=== PATIENT | female | born 1950 | race Caucasian/White ===

== ENCOUNTER → 2019-12-13 | Outpatient (CLI) | payer MEDICARE, BC | END | disposition home or self-care (01) | LOC: LAB 15:50 → LAB SHORT 15:50 | DX: N39.0 Urinary tract infection, site not specified (principal) | CPT/HCPCS: 87086 ==

== ENCOUNTER 2021-01-08 15:46 | Emergency (ER) | payer MEDICARE, BC ==
[~2021-01-08] VITALS: Ht 154.9 cm; Wt 89.8 kg
[2021-01-08 16:29] LABS: BASOPHILS ABSOLUTE AUTO 0.01 K/mm3 (0.00-0.23); BASOPHILS PERCENT AUTO 0 % (0-2); EOSINOPHILS ABSOLUTE AUTO 1.69 K/mm3 (0.00-0.68); EOSINOPHILS PERCENT AUTO 14 % (0-6); Hematocrit 41.5 % (33.0-51.0); IMMATURE GRAN ABSOLUTE AUTO 0.03 K/mm3 (0.00-0.10); IMMATURE GRAN PERCENT AUTO 0 % (0-1); LYMPHOCYTES ABSOLUTE AUTO 1.72 K/mm3 (0.84-5.20); LYMPHOCYTES PERCENT AUTO 14 % (21-46); MONOCYTES ABSOLUTE AUTO 0.74 K/mm3 (0.16-1.47); MONOCYTES PERCENT AUTO 6 % (4-13); Mean Corpuscular HGB 26.1 pg (26.0-34.0); Mean Corpuscular HGB Conc 31.3 g/dL (31.5-36.5); Mean Corpuscular Volume 83 fL (80-100); Mean Platelet Volume 10.1 fL (9.1-12.4); NEUTROPHILS ABSOLUTE AUTO 8.27 K/mm3 (1.96-9.15); NEUTROPHILS PERCENT AUTO 66 % (41-73); Platelet Count 290 K/mm3 (150-400); RDW Coefficient Variation 14.7 % (11.7-14.2); Red Blood Cell Count 4.99 M/mm3 (3.80-5.20); White Blood Cell Count 12.46 K/mm3 (4.00-11.30)
[2021-01-08 16:50] LABS: Albumin, Blood 3.3 g/dL (3.4-5.0); Albumin/Globulin Ratio 0.8 (0.8-1.8); Bilirubin, Total 0.4 mg/dL (0.1-1.0); Bun/Creatinine Ratio 17.8 (12.0-20.0); Calcium, Blood 9.4 mg/dL (8.5-10.1); Creatinine, Blood 1.35 mg/dL (0.40-1.00); Globulin, Blood 4.1 g/dL (2.2-4.0); Potassium, Blood 4.2 mmol/L (3.5-5.5); Total Protein, Blood 7.4 g/dL (6.4-8.2)
[2021-01-08] MEDS ORDERED: OXYC5 PO (17:04)
[2021-01-08] MEDS ORDERED: GLIP2.5ER (17:05)
[2021-01-08] MEDS ORDERED: VENLAFAXINE HC225 MG PO (17:05)
[2021-01-08] MEDS ORDERED: PREGABALIN50 MG PO (17:05)
[2021-01-08] MEDS ORDERED: FUROSEMIDE20 MG PO (17:05)
[2021-01-08] MEDS ORDERED: ROSUVASTATIN CA10 MG PO (17:06)
[2021-01-08] MEDS ORDERED: ZOLOFT100 M5 PO (17:06)
[2021-01-08] MEDS ORDERED: Prinivil10 MG (17:07)
[2021-01-08] MEDS ORDERED: SYNTHROID100 MC6 PO (17:07)
[2021-01-08] MEDS ORDERED: ATENOLOL25 MG PO (17:08)
[2021-01-08] MEDS ORDERED: ALLOPURINOL100 M1 PO (17:08)
[2021-01-08] MEDS ORDERED: TRULICITY0.75 MG/01 SC (17:08)
[2021-01-08] MEDS ORDERED: HUMULIN N100 UNIT/6 SC (17:10)
[2021-01-08 18:17] LABS: Source, Urine Clean Catch
[2021-01-08 18:22] LABS: Appearance, Urine Clear (Clear); Bilirubin, Urine Neg (Neg); Blood, Urine Neg (Neg); Color, Urine Yellow (P-Yellow); Glucose Qualitative, Urine Neg (Neg); Ketones, Urine Neg (Neg); Leukocyte Esterase, Urine 1+ (Neg); Nitrite, Urine Neg (Neg); Protein, Urine Neg (Neg); Specific Gravity, Urine 1.015 (1.003-1.022); Urobilinogen, Urine NORM (Normal)
[2021-01-08 18:29] LABS: Red Blood Cells, Urine Not Seen /hpf (0-2)
[2021-01-08 18:30] LABS: Bacteria Many /hpf; Squamous Epithelial Cells Many /hpf (Few)
[2021-01-08] MEDS ORDERED: Macrobid 100 M100 MG PO (18:46)
== END 2021-01-08 19:01 | disposition home or self-care (01) ==
LOC: ER 15:46
PROVIDERS: Physician Assistant
DX: N39.0 Urinary tract infection, site not specified (principal); K65.4 Sclerosing mesenteritis; E11.9 Type 2 diabetes mellitus without complications; Z79.4 Long term (current) use of insulin; Z79.899 Other long term (current) drug therapy
CPT/HCPCS: 36415; 74176; 80053; 81001; 83690; 85025; 87086; 96374; 99284-25; J2405; J3010; J7030

== ENCOUNTER 2021-01-21 19:05 | Emergency (ER) | payer MEDICARE, BC ==
[~2021-01-21] VITALS: Ht 154.9 cm; Wt 89.8 kg
[~2021-01-21 19:05] MED LIST: ALLOPURINOL100 M1 PO; ATENOLOL25 MG PO; FUROSEMIDE20 MG PO; GLIP2.5ER; HUMULIN N100 UNIT/6 SC; Macrobid 100 M100 MG PO; OXYC5 PO; PREGABALIN50 MG PO; Prinivil10 MG; ROSUVASTATIN CA10 MG PO; SYNTHROID100 MC6 PO; TRULICITY0.75 MG/01 SC; VENLAFAXINE HC225 MG PO; ZOLOFT100 M5 PO
[2021-01-21 19:55] LABS: BASOPHILS ABSOLUTE AUTO 0.05 K/mm3 (0.00-0.23); BASOPHILS PERCENT AUTO 1 % (0-2); EOSINOPHILS ABSOLUTE AUTO 0.35 K/mm3 (0.00-0.68); EOSINOPHILS PERCENT AUTO 4 % (0-6); Hematocrit 34.4 % (33.0-51.0); Hemoglobin 10.6 g/dL (11.5-16.0); IMMATURE GRAN ABSOLUTE AUTO 0.03 K/mm3 (0.00-0.10); IMMATURE GRAN PERCENT AUTO 0 % (0-1); LYMPHOCYTES ABSOLUTE AUTO 2.04 K/mm3 (0.84-5.20); LYMPHOCYTES PERCENT AUTO 23 % (21-46); MONOCYTES ABSOLUTE AUTO 0.68 K/mm3 (0.16-1.47); MONOCYTES PERCENT AUTO 8 % (4-13); Mean Corpuscular HGB Conc 30.8 g/dL (31.5-36.5); Mean Corpuscular Volume 85 fL (80-100); Mean Platelet Volume 9.7 fL (9.1-12.4); NEUTROPHILS ABSOLUTE AUTO 5.68 K/mm3 (1.96-9.15); NEUTROPHILS PERCENT AUTO 64 % (41-73); Platelet Count 292 K/mm3 (150-400); RDW Coefficient Variation 15.4 % (11.7-14.2); Red Blood Cell Count 4.07 M/mm3 (3.80-5.20); White Blood Cell Count 8.83 K/mm3 (4.00-11.30)
[2021-01-21 20:12] LABS: Albumin/Globulin Ratio 0.8 (0.8-1.8); Bilirubin, Total 0.2 mg/dL (0.1-1.0); Bun/Creatinine Ratio 15.2 (12.0-20.0); Creatinine, Blood 2.5 mg/dL (0.40-1.00); Globulin, Blood 3.8 g/dL (2.2-4.0); Potassium, Blood 4.8 mmol/L (3.5-5.5); Total Protein, Blood 6.8 g/dL (6.4-8.2)
[2021-01-21] MEDS ORDERED: FLUV50 (22:01)
[2021-01-21] MEDS ORDERED: SULTRIDS PO (22:01)
[2021-01-21 23:12] LABS: Source, Urine Clean Catch
[2021-01-21 23:14] LABS: Bilirubin, Urine Neg (Neg); Blood, Urine Neg (Neg); Glucose Qualitative, Urine Neg (Neg); Ketones, Urine Neg (Neg); Leukocyte Esterase, Urine Neg (Neg); Nitrite, Urine Neg (Neg); Protein, Urine Neg (Neg); Urobilinogen, Urine NORM (Normal)
[2021-01-21 23:17] LABS: Appearance, Urine Clear (Clear); Color, Urine Yellow (P-Yellow)
== END 2021-01-22 00:53 | disposition home or self-care (01) ==
LOC: ER 19:05
PROVIDERS: Physician Assistant
DX: N28.9 Disorder of kidney and ureter, unspecified (principal); E11.65 Type 2 diabetes mellitus with hyperglycemia; Z79.4 Long term (current) use of insulin; Z79.899 Other long term (current) drug therapy
CPT/HCPCS: 36415; 80053; 81003; 82947; 85025; 99283; J7030

== ENCOUNTER 2021-02-27 10:23 | Emergency (ER) | payer MEDICARE, BC ==
[~2021-02-27] VITALS: Ht 154.9 cm; Wt 90.7 kg
[~2021-02-27 10:23] MED LIST changes: +FLUV50; +SULTRIDS PO
[2021-02-27 14:07] LABS: Source, Urine Clean Catch
[2021-02-27 14:28] LABS: Appearance, Urine Clear (Clear); Bilirubin, Urine Neg (Neg); Blood, Urine Neg (Neg); Color, Urine Yellow (P-Yellow); Glucose Qualitative, Urine Neg (Neg); Ketones, Urine Neg (Neg); Leukocyte Esterase, Urine Neg (Neg); Nitrite, Urine Neg (Neg); Protein, Urine Neg (Neg); Specific Gravity, Urine 1.015 (1.003-1.022); Urobilinogen, Urine NORM (Normal)
[2021-02-27 14:33] LABS: BASOPHILS ABSOLUTE AUTO 0.03 K/mm3 (0.00-0.23); BASOPHILS PERCENT AUTO 0 % (0-2); EOSINOPHILS ABSOLUTE AUTO 0.43 K/mm3 (0.00-0.68); EOSINOPHILS PERCENT AUTO 5 % (0-6); Hematocrit 36.4 % (33.0-51.0); Hemoglobin 11.4 g/dL (11.5-16.0); IMMATURE GRAN ABSOLUTE AUTO 0.03 K/mm3 (0.00-0.10); IMMATURE GRAN PERCENT AUTO 0 % (0-1); LYMPHOCYTES ABSOLUTE AUTO 2.24 K/mm3 (0.84-5.20); LYMPHOCYTES PERCENT AUTO 24 % (21-46); MONOCYTES ABSOLUTE AUTO 0.66 K/mm3 (0.16-1.47); MONOCYTES PERCENT AUTO 7 % (4-13); Mean Corpuscular HGB 26.6 pg (26.0-34.0); Mean Corpuscular HGB Conc 31.3 g/dL (31.5-36.5); Mean Corpuscular Volume 85 fL (80-100); Mean Platelet Volume 9.9 fL (9.1-12.4); NEUTROPHILS ABSOLUTE AUTO 5.83 K/mm3 (1.96-9.15); NEUTROPHILS PERCENT AUTO 63 % (41-73); Platelet Count 251 K/mm3 (150-400); RDW Coefficient Variation 15.1 % (11.7-14.2); RDW Standard Deviation 46.7 fL (35.1-46.3); Red Blood Cell Count 4.28 M/mm3 (3.80-5.20); White Blood Cell Count 9.22 K/mm3 (4.00-11.30)
[2021-02-27 15:04] LABS: Albumin, Blood 3.2 g/dL (3.4-5.0); Albumin/Globulin Ratio 0.8 (0.8-1.8); Bilirubin, Total 0.3 mg/dL (0.1-1.0); Bun/Creatinine Ratio 20.6 (12.0-20.0); Calcium, Blood 9.5 mg/dL (8.5-10.1); Creatinine, Blood 1.26 mg/dL (0.40-1.00); Globulin, Blood 3.9 g/dL (2.2-4.0); Potassium, Blood 4.1 mmol/L (3.5-5.5); Total Protein, Blood 7.1 g/dL (6.4-8.2)
== END 2021-02-27 15:32 | disposition home or self-care (01) ==
LOC: ER 10:23
PROVIDERS: Physician Assistant
DX: R07.89 Other chest pain (principal)
CPT/HCPCS: 36415; 74176; 80053; 81003; 83690; 85025; 99284-25; A9270

== ENCOUNTER 2021-08-13 06:00 | Day surgery (SDC) | payer MEDICARE, BC ==
[~2021-08-13] VITALS: Ht 154.9 cm; Wt 84.9 kg
[~2021-08-13 06:00] MED LIST changes: -FLUV50; +FLUV50 PO; +HUMALOG KW100 UNIT/1 SC; +LEVOTHYROXINE PO; -Prinivil10 MG; +Prinivil10 MG PO; -SYNTHROID100 MC6 PO; +XANAX0.5 MG PO
[2021-08-13] MEDS ORDERED: TRULICITY0.75 MG/01 SQ (06:23)
--- NOTE | 2021-08-13 07:24 | NUR ---
PT AMBULATES TO [facility] c SLOW GAIT. History, Chart, Medications and Allergies reviewed before start of procedure. Lungs clear T/O to Auscultation. Patient confirms NPO status and agrees with scheduled surgery. Patient reports completing Chlorhexadine shower X2 prior to admission to hospital. CHEM BG 133.
--- NOTE | 2021-08-13 19:38 | NUR ---
SHIFT SUMMARY PT A&OX4/RA/VSS/CBGS PER EMAR. S/P L TKA, AQUACEL CDI, POLAR RENETTA/RD/SCDS ON, 2VIEW XRAY DONE AT 1940 PER SURGEON'S ORDER AFTER PT WAS EXTREMELY PAINFUL TRANSFERRING FROM CHAIR TO BSC/BED. CUCO PO. PAIN MANAGED PER EMAR. PT VOIDED 50 MLS, ATTENDS ON. REPORT PROVIDED TO MAT STRATTON.
--- NOTE | 2021-08-13 21:35 | NUR ---
BLADDER SCAN PREFORMED, >500M.L. STRAIGHT CATHED AT THAT TIME.
--- NOTE | 2021-08-14 03:14 | NUR ---
SHIFT SUMMARY A/O X4. POD1 L TKA AQUACEL AND POLAR PACK IN PLACE, AQUACEL C/D/I. VSS. PAIN MANAGED PER EMAR. TOLERATING PO INTAKE. BEDREST THIS SHIFT DUE TO NOT BEING ABLE TO WORK WELL WITH PT. STRAIGHT CATH DUE TO NO POST VOID, 520ML OUT AT THAT TIME, AWAITING VOID AT THIS TIME. WILL CONTINUE TO MONITOR AND REPORT TO ONCOMING RN.
[2021-08-14 04:54] LABS: BASOPHILS ABSOLUTE AUTO 0.02 K/mm3 (0.00-0.23); BASOPHILS PERCENT AUTO 0 % (0-2); EOSINOPHILS PERCENT AUTO 0 % (0-6); Hematocrit 31.1 % (33.0-51.0); Hemoglobin 10.3 g/dL (11.5-16.0); IMMATURE GRAN ABSOLUTE AUTO 0.05 K/mm3 (0.00-0.10); IMMATURE GRAN PERCENT AUTO 0 % (0-1); LYMPHOCYTES ABSOLUTE AUTO 0.67 K/mm3 (0.84-5.20); LYMPHOCYTES PERCENT AUTO 4 % (21-46); MONOCYTES ABSOLUTE AUTO 0.67 K/mm3 (0.16-1.47); MONOCYTES PERCENT AUTO 4 % (4-13); Mean Corpuscular HGB 27.1 pg (26.0-34.0); Mean Corpuscular HGB Conc 33.1 g/dL (31.5-36.5); Mean Corpuscular Volume 82 fL (80-100); Mean Platelet Volume 9.8 fL (9.1-12.4); NEUTROPHILS ABSOLUTE AUTO 16.04 K/mm3 (1.96-9.15); NEUTROPHILS PERCENT AUTO 92 % (41-73); Platelet Count 233 K/mm3 (150-400); RDW Coefficient Variation 14.5 % (11.7-14.2); RDW Standard Deviation 43.1 fL (35.1-46.3); White Blood Cell Count 17.45 K/mm3 (4.00-11.30)
[2021-08-14 06:16] LABS: Bun/Creatinine Ratio 18.8 (12.0-20.0); Calcium, Blood 8.4 mg/dL (8.5-10.1); Creatinine, Blood 1.65 mg/dL (0.40-1.00); Magnesium, Blood 1.4 mg/dL (1.6-2.4); Potassium, Blood 4.4 mmol/L (3.5-5.5)
[2021-08-14] MEDS ORDERED: ACET500 PO (09:27)
[2021-08-14] MEDS ORDERED: ASPI81CH PO (09:28)
--- NOTE | 2021-08-14 13:38 | NUR ---
DISCHARGE SUMMARY PT A&OX4, VSS, LEFT VIA WC WITH IAP DISPLAYS ANALYST, TO GO HOME WITH , WITH ALL PERSONAL POSSESSIONS INCLUDING DC PACKET, 1 NARC SCRIPT, POLAR RENETTA, AQUACEL DRESSINGS. DC INSTRUCTIONS PROVIDED. PT AND REP UNDERSTANDING THOSE INSTRUCTIONS, AND WHEN TO CALL THE DR, AND DRESSING CHANGES. IV DC'D.
== END 2021-08-14 11:50 | disposition home or self-care (01) ==
LOC: ORSCMMR 06:00 → ORD 09:30 → SURS 10:28 → ORD 10:30 → ORSCMMR 10:30
PROVIDERS: Orthopaedic Surgery
PROC: 0SRD0JA Replacement of Left Knee Joint with Synthetic Substitute, Uncemented, Open Approach (ICD-10-PCS; principal; 2021-08-13 07:30)
PROC: 8E0Y0CZ Robotic Assisted Procedure of Lower Extremity, Open Approach (ICD-10-PCS; principal; 2021-08-13 07:30)
DX: M17.12 Unilateral primary osteoarthritis, left knee (principal); I10 Essential (primary) hypertension; E78.5 Hyperlipidemia, unspecified; E03.9 Hypothyroidism, unspecified; E66.9 Obesity, unspecified; Z68.35 Body mass index [BMI] 35.0-35.9, adult; Z79.899 Other long term (current) drug therapy; E11.40 Type 2 diabetes mellitus with diabetic neuropathy, unspecified; Z79.4 Long term (current) use of insulin; N18.9 Chronic kidney disease, unspecified
CPT/HCPCS: 27447; S2900; 36415; 73560-LT; 80048; 82947; 83735; 85025; 93005; 93010; 97110; 97116; 97162; 97530; A9270; C1776; J0171; J0690; J0735; J1100; J1815; J1885; J2370; J2405; J2704; J2795; J3010; J7120

== ENCOUNTER 2021-08-16 14:41 | Inpatient (IN) | payer MEDICARE, BC ==
[~2021-08-16] VITALS: Ht 154.9 cm; Wt 91.7 kg
[~2021-08-16 14:41] MED LIST changes: +ACET500 PO; +ASPI81CH PO; +TRULICITY0.75 MG/01 SQ
[2021-08-16 16:10] LABS: BASOPHILS ABSOLUTE AUTO 0.04 K/mm3 (0.00-0.23); BASOPHILS PERCENT AUTO 0 % (0-2); EOSINOPHILS ABSOLUTE AUTO 0.46 K/mm3 (0.00-0.68); EOSINOPHILS PERCENT AUTO 3 % (0-6); Hemoglobin 11.5 g/dL (11.5-16.0); IMMATURE GRAN ABSOLUTE AUTO 0.08 K/mm3 (0.00-0.10); IMMATURE GRAN PERCENT AUTO 1 % (0-1); LYMPHOCYTES ABSOLUTE AUTO 2.19 K/mm3 (0.84-5.20); LYMPHOCYTES PERCENT AUTO 13 % (21-46); MONOCYTES ABSOLUTE AUTO 1.13 K/mm3 (0.16-1.47); MONOCYTES PERCENT AUTO 7 % (4-13); Mean Corpuscular HGB 26.5 pg (26.0-34.0); Mean Corpuscular HGB Conc 31.1 g/dL (31.5-36.5); Mean Corpuscular Volume 85 fL (80-100); Mean Platelet Volume 9.9 fL (9.1-12.4); NEUTROPHILS ABSOLUTE AUTO 13.56 K/mm3 (1.96-9.15); NEUTROPHILS PERCENT AUTO 78 % (41-73); Platelet Count 252 K/mm3 (150-400); RDW Coefficient Variation 15.3 % (11.7-14.2); RDW Standard Deviation 47.7 fL (35.1-46.3); Red Blood Cell Count 4.34 M/mm3 (3.80-5.20); White Blood Cell Count 17.46 K/mm3 (4.00-11.30)
[2021-08-16 16:54] LABS: Alanine Aminotransfer (ALT/SGP 12 U/L (12-78); Albumin, Blood 3.2 g/dL (3.4-5.0); Albumin/Globulin Ratio 0.9 (0.8-1.8); Alk Phos 99 U/L (50-136); Anion Gap 4 mmol/L (6-16); Aspartate Aminotrans (AST/SGOT 30 U/L (12-37); Bilirubin, Total 0.6 mg/dL (0.1-1.0); Blood Urea Nitrogen 33 mg/dL (8-24); Bun/Creatinine Ratio 23.4 (12.0-20.0); CO2, Blood 26 mmol/L (21-32); Calcium, Blood 8.5 mg/dL (8.5-10.1); Chloride, Blood 111 mmol/L (98-108); Creatinine, Blood 1.41 mg/dL (0.40-1.00); Globulin, Blood 3.6 g/dL (2.2-4.0); Glomerular Filtration Rate 37 (60-); Glucose, Blood 159 mg/dL (70-99); Potassium, Blood 4.8 mmol/L (3.5-5.5); Sodium, Blood 141 mmol/L (136-145); Total Protein, Blood 6.8 g/dL (6.4-8.2); Troponin I <0.015 ng/mL (0.000-0.040)
[2021-08-16 23:56] LABS: Influenza A, PCR NEGATIVE (NEGATIVE); Influenza B, PCR NEGATIVE (NEGATIVE); Resp Syncytial Virus, PCR NEGATIVE (NEGATIVE); SARS-Cov-2 (COVID-19) PCR, MMC NEGATIVE (NEGATIVE)
[2021-08-17 01:20] LABS: Source, Urine Clean Catch
[2021-08-17 01:23] LABS: Bilirubin, Urine Neg (Neg); Blood, Urine 1+ (Neg); Glucose Qualitative, Urine Neg (Neg); Ketones, Urine Neg (Neg); Leukocyte Esterase, Urine Neg (Neg); Nitrite, Urine Neg (Neg); Protein, Urine 1+ (Neg); Urobilinogen, Urine NORM (Normal)
[2021-08-17 01:45] LABS: Appearance, Urine Clear (Clear); Color, Urine Yellow (P-Yellow)
[2021-08-17 01:46] LABS: Amorphous Light (0-Heavy); Bacteria Not Seen /hpf; Red Blood Cells, Urine Rare /hpf (0-2); Squamous Epithelial Cells Not Seen /hpf (Few); White Blood Cells, Urine Not Seen /hpf (0-5)
[2021-08-17 05:51] LABS: BASOPHILS ABSOLUTE AUTO 0.03 K/mm3 (0.00-0.23); BASOPHILS PERCENT AUTO 0 % (0-2); EOSINOPHILS ABSOLUTE AUTO 0.52 K/mm3 (0.00-0.68); EOSINOPHILS PERCENT AUTO 4 % (0-6); Hematocrit 26.5 % (33.0-51.0); Hemoglobin 8.3 g/dL (11.5-16.0); IMMATURE GRAN ABSOLUTE AUTO 0.06 K/mm3 (0.00-0.10); IMMATURE GRAN PERCENT AUTO 0 % (0-1); LYMPHOCYTES ABSOLUTE AUTO 2.55 K/mm3 (0.84-5.20); LYMPHOCYTES PERCENT AUTO 19 % (21-46); MONOCYTES ABSOLUTE AUTO 0.87 K/mm3 (0.16-1.47); MONOCYTES PERCENT AUTO 7 % (4-13); Mean Corpuscular HGB 26.6 pg (26.0-34.0); Mean Corpuscular HGB Conc 31.3 g/dL (31.5-36.5); Mean Corpuscular Volume 85 fL (80-100); Mean Platelet Volume 9.6 fL (9.1-12.4); NEUTROPHILS ABSOLUTE AUTO 9.39 K/mm3 (1.96-9.15); NEUTROPHILS PERCENT AUTO 70 % (41-73); Platelet Count 226 K/mm3 (150-400); RDW Coefficient Variation 15.5 % (11.7-14.2); Red Blood Cell Count 3.12 M/mm3 (3.80-5.20); White Blood Cell Count 13.42 K/mm3 (4.00-11.30)
[2021-08-17 06:14] LABS: Albumin, Blood 2.4 g/dL (3.4-5.0); Albumin/Globulin Ratio 0.9 (0.8-1.8); Bilirubin, Total 0.4 mg/dL (0.1-1.0); Bun/Creatinine Ratio 22.5 (12.0-20.0); Calcium, Blood 7.2 mg/dL (8.5-10.1); Creatinine, Blood 1.11 mg/dL (0.40-1.00); Globulin, Blood 2.7 g/dL (2.2-4.0); Magnesium, Blood 1.6 mg/dL (1.6-2.4); Potassium, Blood 3.6 mmol/L (3.5-5.5); Thyroid Stimulating Hormone 0.604 uIU/mL (0.360-4.800); Total Protein, Blood 5.1 g/dL (6.4-8.2)
--- NOTE | 2021-08-17 14:30 | NUR ---
PT ARRIVED TO THE ROOM AT 1350. PT ALERT AND ORIENTED AT TIME OF ARRIVAL. PT REPORTS PAIN BUT STATES IT IS TOLERABLE. DRESSING WAS REMOVED FROM L KNEE IN THE ER, INCISIONS CLEANSED WITH H2O2 AND MEDIPORE DRESSING PLACED PER DR. SCHRADER. L KNEE ELEVATED AND PLACED IN A STRAIGHT POSITION. PT'S WENT HOME TO GET POLAR PACK. PT EDUCATED THAT SHE WILL BE NPO UNTIL DR. SCHRADER ROUND. WILL CONTINUE TO MONITOR.
[2021-08-17] MEDS ORDERED: HYDPAM50 PO (15:27)
--- NOTE | 2021-08-17 19:55 | NUR ---
SHIFT SUMMARY PT WAS SEEN BY DR. SCHRADER TODAY. PLAN TO CONTINUE WITH IV ABX. PAIN MANAGED WITH PO PAIN MEDICATION. PT IS ANXIOUS THIS EVENING, REACHED OUT TO DR. DOOLEY REGARDING PT'S ANXIETY MEDICATION, MESSAGE LEFT. MANUEL RN NOTIFIED PT HAS HAD SOME ANXIETY REGARDING HER SITUATION. DRESSING TO L KNEE CHANGED TO AQUACEL. PT IS A 2 ASSIST WHEN OOB. REPORT GIVEN TO MANUEL STRATTON.
[2021-08-18 04:46] LABS: Hematocrit 27.9 % (33.0-51.0); Hemoglobin 8.8 g/dL (11.5-16.0); Mean Corpuscular HGB 27.1 pg (26.0-34.0); Mean Corpuscular HGB Conc 31.5 g/dL (31.5-36.5); Mean Corpuscular Volume 86 fL (80-100); Mean Platelet Volume 9.6 fL (9.1-12.4); Platelet Count 267 K/mm3 (150-400); RDW Standard Deviation 47.4 fL (35.1-46.3); Red Blood Cell Count 3.25 M/mm3 (3.80-5.20); White Blood Cell Count 13.72 K/mm3 (4.00-11.30)
--- NOTE | 2021-08-18 04:53 | NUR ---
MUTUEL MACHINE OPERATOR SUMMARY PT AAOX3 BUT CAN BECOME QUITE CONFUSED/FORGETFUL AT TIMES. PT SOMETIMES FORGETS SHE IS IN THE HOSPITAL AND THINKS SHE IS STILL AT HOME. CALLS OUT FOR HER FREQUENTLY AND USES CALL LIGHT OFTEN AND SOMETIMES FORGETS WHY SHE CALLED. L KNEE DRESSING REPLACED BY DAYSHIFT RN AT SHIFT CHANGE, REMAINS C/D/I. PT HAS POLAR PACK ON LLE. CONTINUING IV ABX. VSS, WILL CONTINUE TO MONITOR.
[2021-08-18 05:36] LABS: Albumin, Blood 2.5 g/dL (3.4-5.0); Albumin/Globulin Ratio 0.8 (0.8-1.8); Bilirubin, Total 0.5 mg/dL (0.1-1.0); Bun/Creatinine Ratio 16.5 (12.0-20.0); Calcium, Blood 8.3 mg/dL (8.5-10.1); Creatinine, Blood 1.21 mg/dL (0.40-1.00); Potassium, Blood 4.1 mmol/L (3.5-5.5); Total Protein, Blood 5.5 g/dL (6.4-8.2)
--- NOTE | 2021-08-18 10:49 | NUR ---
PT IN THIS A.M. AND 2 MAX ASSIST WITH GAIT BELT AND WALKER TO GET TO BSC AND THEN RECLINER CHAIR. MUCH COACHING NEEDED AND ENCOURAGEMENT PT. VERY TEARFUL AND ANXIOUS. PATIENT WAS MEDICATED PRIOR TO PHYISCAL THERAPY. AT THIS TIME PT. IS IN RECLINER AND TOLERATE WELL.
--- NOTE | 2021-08-18 18:19 | NUR ---
IV LEAKING EARLIER L AC, BEGINNING TO INFILTRATE. IV REMOVED AND ASKED FOR POWER GLIDE IV. MULTIPLE ATTEMPTS WITH 2 DIFFERENT NURSES AND US, UNSUCCESSFUL. DOCTOR MIAH NOTIFIED OF PT. WITH NO IV SITE , UNABLE TO GIVE UNASYN DUE AT THIS TIME, BHAVIK CLAIRE AT 2100. NEW ORDERS RECIEVED FOR PICC LINE PLACEMENT AND CHEST XRAY.
[2021-08-18 20:25] LABS: Vancomycin, Trough 14.8 ug/mL (5.0-10.0)
--- NOTE | 2021-08-19 03:46 | NUR ---
SHIFT SUMMARY: PATIENT WAS AOX4 UPON ASSESSMENT, COMPLAINTS OF PAIN TO LEFT KNEE, MEDICATED ( SEE EMAR).FREQUENT ROUNDING DONE, NOTED PT.NON LABORED BREATHING, SNORING & SLEEPING WELL BUT AROUSABLE. NO SCREAMING NOTED SO FAR UP TO THIS TIME.CN NOTIFIED ME LAST NIGHT THAT PICC PLACEMENT WILL POSSIBLY BE TODAY NOBODY CAN DO IT LAST NIGHT.COOLING MEASURE TO LEFT KNEE APPLIED.PT. REFUSED TO BE REPOSITIONED, SHE DOES MOVE HER UPPER BODY & LEGS BY HERSELF.
[2021-08-19 04:39] LABS: Hematocrit 28.8 % (33.0-51.0); Hemoglobin 9.1 g/dL (11.5-16.0); Mean Corpuscular HGB 26.9 pg (26.0-34.0); Mean Corpuscular HGB Conc 31.6 g/dL (31.5-36.5); Mean Corpuscular Volume 85 fL (80-100); Mean Platelet Volume 9.3 fL (9.1-12.4); Platelet Count 272 K/mm3 (150-400); RDW Coefficient Variation 14.9 % (11.7-14.2); RDW Standard Deviation 46.5 fL (35.1-46.3); Red Blood Cell Count 3.38 M/mm3 (3.80-5.20); White Blood Cell Count 10.22 K/mm3 (4.00-11.30)
[2021-08-19 05:07] LABS: Alanine Aminotransfer (ALT/SGP 11 U/L (12-78); Albumin, Blood 2.3 g/dL (3.4-5.0); Albumin/Globulin Ratio 0.6 (0.8-1.8); Alk Phos 83 U/L (50-136); Anion Gap 4 mmol/L (6-16); Aspartate Aminotrans (AST/SGOT 22 U/L (12-37); Bilirubin, Total 0.4 mg/dL (0.1-1.0); Blood Urea Nitrogen 18 mg/dL (8-24); Bun/Creatinine Ratio 16.4 (12.0-20.0); CO2, Blood 30 mmol/L (21-32); Calcium, Blood 8.8 mg/dL (8.5-10.1); Chloride, Blood 108 mmol/L (98-108); Globulin, Blood 3.7 g/dL (2.2-4.0); Glomerular Filtration Rate 49 (60-); Glucose, Blood 125 mg/dL (70-99); Potassium, Blood 3.8 mmol/L (3.5-5.5); Sodium, Blood 142 mmol/L (136-145)
[2021-08-19 05:09] LABS: C-REACTIVE PROTEIN, EXT RANGE >19.000 mg/dL (0.000-0.300)
--- NOTE | 2021-08-19 06:36 | NUR ---
PT. VOIDED & WET THE BED AROUND 8 PM LAST NIGHT, BEDBATH GIVEN. PT. SLEPT WELL & UPON WAKING UP AROUND 5 AM, OFFERED PT. TO USE THE BEDSIDE COMMODE, PT. REFUSED & WANTED TO USE THE BEDPAN INSTEAD. PT. COULD NOT URINATE, BLADDER SCAN SHOWED 625 ML, STRAIGHT CATH DONE DRAINED CLEAR YELLOW URINE, SEE OUTPUT FOR AMOUNT.PT. TOLERATED STRAIGHT CATH WELL.
--- NOTE | 2021-08-19 06:52 | NUR ---
PHARMACY ([facility]) NOTIFIED OF PT. NOT HAVING IV ACCESS & THAT IV ANTIBIOTICS WERE NOT GIVEN & PT. WILL HAVE POSSIBLY PICC TODAY.
--- NOTE | 2021-08-19 14:03 | NUR ---
PT. UP TO CHAIR TODAY WITH ASSIST OF TWO, MODERATE TO MAX ASSIST FOR STAND, PIVOT TO BSC AND BACK TO CHAIR. DID NOT TAKE STEPS. NO IV ACCESS AT THIS TIME, MD'S AWARE AND ORAL ATB STARTED. TOLERATE RECLINER LOUNGE AND PT. IS SITTING UP WITH VISITING AT THIS TIME.
[2021-08-20 05:14] LABS: Hemoglobin 8.3 g/dL (11.5-16.0); Mean Corpuscular HGB 26.7 pg (26.0-34.0); Mean Corpuscular HGB Conc 31.9 g/dL (31.5-36.5); Mean Corpuscular Volume 84 fL (80-100); Mean Platelet Volume 9.4 fL (9.1-12.4); Platelet Count 286 K/mm3 (150-400); RDW Coefficient Variation 14.7 % (11.7-14.2); RDW Standard Deviation 45.3 fL (35.1-46.3); Red Blood Cell Count 3.11 M/mm3 (3.80-5.20); White Blood Cell Count 9.86 K/mm3 (4.00-11.30)
[2021-08-20 05:47] LABS: Albumin, Blood 2.2 g/dL (3.4-5.0); Albumin/Globulin Ratio 0.6 (0.8-1.8); Bilirubin, Total 0.5 mg/dL (0.1-1.0); Bun/Creatinine Ratio 14.5 (12.0-20.0); Calcium, Blood 8.4 mg/dL (8.5-10.1); Creatinine, Blood 1.24 mg/dL (0.40-1.00); Globulin, Blood 3.6 g/dL (2.2-4.0); Potassium, Blood 3.7 mmol/L (3.5-5.5); Total Protein, Blood 5.8 g/dL (6.4-8.2)
--- NOTE | 2021-08-20 06:03 | NUR ---
SHIFT SUMMARY: PATIENT AOX4, RIGHT KNEE WITH COOLING MEASURE ON. UNLABORED BREATHING & SLEPT WELL LAST NIGHT. ABLE TO MAKE NEEDS KNOWN. INCONTINENT AT TIMES, BRIEF ON.REQUESTED PAIN MEDICINE TWICE THROUGHOUT THE SHIFT.DRINKING & VOIDING WELL.NO NEW UNUSUALITIES NOTED, WILL CONTINUE TO MONITOR.
[2021-08-20 16:20] LABS: Influenza A, PCR NEGATIVE (NEGATIVE); Influenza B, PCR NEGATIVE (NEGATIVE); Resp Syncytial Virus, PCR NEGATIVE (NEGATIVE); SARS-Cov-2 (COVID-19) PCR, MMC NEGATIVE (NEGATIVE)
--- NOTE | 2021-08-20 18:03 | NUR ---
DISCHARGE REPORT CALLED TO [facility] SANTORO [facility] AT 1645. PT LEFT VIA W/C TRANSPORT AT 1744. PT HAD A BM PRIOR TO DISCHARGE. PAIN MANAGED AT TIME OF DISCHARGE. PT WAS A 2 PERSON MODERATE ASSIST FOR TRANSFER TO THE W/C. CLEAN DRESSINGS, PRESCRIPTIONS AND PT DISCHARGE PACKET SENT WITH PT. PT BELONGINGS INCLUDING HER ICE MACHINE SENT WITH HER.
== END 2021-08-20 17:44 | DRG 862 ==
LOC: ER 14:41 → SURS 20:44 → ERHOLD 20:44 → SURS 08-17 12:51
PROVIDERS: Emergency Medicine; Family Medicine; Internal Medicine; Physician Assistant; ADMIT Internal Medicine
DX: T81.41XA Infection following a procedure, superficial incisional surgical site, initial encounter (principal); A41.9 Sepsis, unspecified organism; G93.41 Metabolic encephalopathy; Z20.822 Contact with and (suspected) exposure to COVID-19; I12.9 Hypertensive chronic kidney disease with stage 1 through stage 4 chronic kidney disease, or unspecified chronic kidney disease; N18.30 Chronic kidney disease, stage 3 unspecified; E11.22 Type 2 diabetes mellitus with diabetic chronic kidney disease; E03.9 Hypothyroidism, unspecified; E78.5 Hyperlipidemia, unspecified; F32.A Depression, unspecified; G89.29 Other chronic pain; F41.9 Anxiety disorder, unspecified; F11.90 Opioid use, unspecified, uncomplicated; Z90.49 Acquired absence of other specified parts of digestive tract; Z96.652 Presence of left artificial knee joint; Z88.8 Allergy status to other drugs, medicaments and biological substances; Z79.4 Long term (current) use of insulin; Z79.899 Other long term (current) drug therapy; Z79.82 Long term (current) use of aspirin; Z90.89 Acquired absence of other organs; Y83.8 Other surgical procedures as the cause of abnormal reaction of the patient, or of later complication, without mention of misadventure at the time of the procedure
CPT/HCPCS: 0241U; 36415; 51701; 71045; 73564; 80053; 80202; 81001; 82947; 83605; 83735; 84145; 84443; 84484; 85025; 85027; 85651; 86140; 87040; 93005; 93010; 96365; 96366; 96375; 96376; 97110; 97162; 97166; 97530; 97535; 99285-25; A9270; J0295; J1170; J1815; J2405; J3370; J7030; J7050

== ENCOUNTER → 2022-04-19 | Outpatient (CLI) | payer MEDICARE, BC ==
[~2022-04-19] MED LIST changes: +HYDPAM50 PO
[2022-04-19 14:40] LABS: Protein, Urine Random 8.9 mg/dL (0.0-11.9)
[2022-04-19 14:48] LABS: Protein/Creat Ratio, Ur Random 0.1
== END ==
LOC: LAB SHORT 11:14 → LAB 11:14
PROVIDERS: Internal Medicine Nephrology
DX: N18.32 Chronic kidney disease, stage 3b (principal); E55.9 Vitamin D deficiency, unspecified
CPT/HCPCS: 82570; 84156

== ENCOUNTER → 2023-07-21 | Outpatient (CLI) | payer MEDICARE, BC ==
[2023-07-21 10:50] LABS: Source, Urine Clean Catch
[2023-07-21 11:00] LABS: Appearance, Urine Cloudy (Clear); Color, Urine Yellow (P-Yellow); Specific Gravity, Urine 1.015 (1.003-1.022)
[2023-07-21 11:01] LABS: Bilirubin, Urine Neg (Neg); Blood, Urine Neg (Neg); Glucose Qualitative, Urine Neg (Normal); Ketones, Urine Neg (Neg); Leukocyte Esterase, Urine 2+ (Neg); Nitrite, Urine Pos (Neg); Protein, Urine Neg (Neg); Urobilinogen, Urine NORM (Normal)
[2023-07-21 11:04] LABS: Bacteria Many /hpf; Red Blood Cells, Urine Not Seen /hpf (0-2); Squamous Epithelial Cells Not Seen /hpf (Few)
[2023-07-21 13:59] LABS: Creatinine, Urine Random 67.6 mg/dL (27.00-270.00); Microalbumin, Random Urine 27.3 mg/L (0.000-20.000)
== END | disposition home or self-care (01) ==
LOC: LAB SHORT 05:00 → LAB 05:00
PROVIDERS: Hospitalist
DX: N18.32 Chronic kidney disease, stage 3b (principal); E55.9 Vitamin D deficiency, unspecified
CPT/HCPCS: 81001; 82043; 82570; 87077; 87086; 87186

== ENCOUNTER 2024-03-03 10:08 | Day surgery (SDC) | payer OTHER | END 2024-03-03 22:55 | disposition home or self-care (01) | LOC: MOI MAM 10:08 | DX: D05.12 Intraductal carcinoma in situ of left breast (principal); R92.0 Mammographic microcalcification found on diagnostic imaging of breast | CPT/HCPCS: 19081; A4648 ==

== ENCOUNTER 2024-04-01 07:11 | Inpatient (IN) | payer OTHER ==
[2024-04-01] VITALS (15 sets, daily range): BP systolic 105–200; BP diastolic 43–108
[~2024-04-01] VITALS: Ht 154.9 cm; Wt 87.3 kg
[2024-04-01] MEDS ORDERED: CeFAZolin Sodium 2,000 MG in NS 100 ML IV SCH (08:15)
[2024-04-01] MEDS ORDERED: Lactated Ringer's 1,000 ML IV SCH ×2 (08:15→13:50)
[2024-04-01] MEDS ORDERED: OZEMPIC0.25 MG/02 SC (08:41)
[2024-04-01] MEDS ORDERED: Midazolam HCl 1MG / ML 2ML Vial IV ONE (09:45)
[2024-04-01] MEDS ORDERED: Methylene Blue 1% 100 MG/10 ML VIAL ONE (09:52)
[2024-04-01] MEDS ORDERED: Bupivacaine 0.5% HCl 5 MG/ML 30MLVIAL ONE (09:52)
[2024-04-01] MEDS ORDERED: FentaNYL Citrate 50 MCG/ML 2 ML Injection ONE ×2 (10:10→11:59)
[2024-04-01] MEDS ORDERED: propofoL 20 ML IV ONE (10:10)
[2024-04-01] MEDS ORDERED: Phenylephrine HCl 100 MCG/ML-NS 10MLSYR (1MG/10ML) ONE (10:18)
[2024-04-01] MEDS ORDERED: Ondansetron HCl 2 MG / ML 2ML Vial ONE (10:25)
[2024-04-01] MEDS ORDERED: Dexamethasone Sod Phos 10 MG/ML 1ML VIAL ONE (10:25)
[2024-04-01] MEDS ORDERED: SuccINYLCHOLINE Chloride 100 MG/5 ML 5MLSYR ONE (10:25)
[2024-04-01] MEDS ORDERED: Rocuronium Bromide 10 MG/ML 5ML Injection IV ONE ×2 (10:25→11:59)
[2024-04-01] MEDS ORDERED: Phenylephrine HCl 10mg/ml 1 ml Vial ONE (11:59)
[2024-04-01] MEDS ORDERED: CeFAZolin Sodium 1000 mg Vial ONE (13:04)
[2024-04-01] MEDS ORDERED: Sugammadex Sodium 200 MG/2ML SDV (100 MG/ML) ONE (13:04)
[2024-04-01] MEDS ORDERED: Ipratropium/Albuterol SulF 2.5-0.5MG/3 ML Amp ONE (13:27)
[2024-04-01] MEDS ORDERED: Ondansetron 4 MG TAB PO PRN (13:45)
[2024-04-01] MEDS ORDERED: HYDROcodone 5-APAP 325 TAB PO PRN (13:45)
[2024-04-01] MEDS ORDERED: Acetaminophen 325 MG TABLET PO PRN (13:45)
[2024-04-01] MEDS ORDERED: FentaNYL Citrate 50 MCG/ML 2 ML Injection IV PRN (13:45)
[2024-04-01] MEDS ORDERED: Insulin Human Lispro 100 Units/ML 3ML Syringe SC PRN (13:50)
[2024-04-01] MEDS ORDERED: Ondansetron HCl 2 MG / ML 2ML Vial IV PRN (13:50)
[2024-04-01] MEDS ORDERED: NOVOLIN N100 UNIT/2 SC ×3 (18:02→18:03)
--- NOTE | 2024-04-01 19:14 | NUR ---
SHIFT SUMMARY PT HAS DONE WELL POST OP. EATING, DRINKING, VOIDED. UP TO BATHROOM EASILY. ANKIT DRAINs WNL. R SIDE MORE DARKER OUT PUT THAN L.
[2024-04-01] MEDS ORDERED: Insulin NPH 10 Unit/0.1ML (Single Dose) SC SCH (21:00)
[2024-04-01] MEDS ORDERED: Docusate Sodium 100 MG Cap PO SCH (21:00)
[2024-04-01] MEDS ORDERED: Insulin Human Lispro 100 Units/ML 3ML Syringe SC SCH (21:00)
[2024-04-01] MEDS ORDERED: ALPRAZolam 0.5 MG Tab PO SCH (21:00)
[2024-04-01] MEDS ORDERED: Insulin NPH 100 Unit / ML 10ML Vial SC SCH (21:00)
[2024-04-02 04:19] VITALS: BP 109/58
[2024-04-02] MEDS ORDERED: Levothyroxine Sodium 0.1 MG Tab PO SCH (06:00)
--- NOTE | 2024-04-02 06:16 | NUR ---
SHIFT SUMMARY PT REMAINS A&O X4. PLESANT AND COOPERATIVE WITH CARE. VSS, AFEBRILE, REMAINS ON RA. PT TOLERATING PO INTAKE. NO ACUTE EVENTS. NO EPISODES OF N/V. BINDER IN PLACE, STERI STRIPS AND GAUZE TO SITES WITHOUT DRAINAGE THIS SHIFT. ANKIT DRAINS X2 IN PLACE; R DRAIN WITH TOTAL OF 90 MLS OF SANGUINEOUS FLUID - DRESSING WITH SCANT AMOUNT OF BLOOD DRAINAGE UNDER DRESSING. L DRAIN WITH 25 MLS OF SEROSANGUINEOUS OUTPUT - DRESSING WITH SMALL AMOUNT OF DRAINAGE UNDER IT. PAIN WELL CONTROLLED WITHOUT ANY PAIN MEDICATION THIS SHIFT. PT REPORTS SHE IS FEELING "MUCH BETTER". PT USING RESTROOM WITH ADEQUATE OUTPUT; URINE IS BLUE/GREEN IN COLOR FROM DYE. PT AMBULATING SBA WITH FWW AND TOLERATING WELL. PM CBG 398; COVERAGE PER EMAR. PT RESTED WELL T/O SHIFT. ABLE TO MAKE NEEDS KNOWN, CALL LIGHT IN REACH. WILL UPDATE ONCOMING RN.
[2024-04-02 07:41] VITALS: BP 109/68
[2024-04-02] MEDS ORDERED: Furosemide 20 MG Tab PO SCH (09:00)
[2024-04-02] MEDS ORDERED: Insulin NPH 100 Unit / ML 10ML Vial SC SCH ×2 (09:00→12:00)
[2024-04-02] MEDS ORDERED: FluvoxaMINE Maleate 50 MG Tab PO SCH (09:00)
[2024-04-02] MEDS ORDERED: Lisinopril 5 MG Tab PO SCH (09:00)
[2024-04-02] MEDS ORDERED: Rosuvastatin Calcium 10 MG Tab PO SCH (09:00)
--- NOTE | 2024-04-02 14:29 | NUR ---
DISCHARGE: PACKET PRINTED AND PT EDUCATED. GIVEN INSTRUCTION ON HOME USE OF ANKIT DRAINS AND RECORDING OUTPUT. PT VERBALIZED UNDERSTANDING. PT GIVEN PAIN SCRIPT. PT LEFT UNIT AT ABOUT 1430 WITH VIA WHEELCHAIR
== END 2024-04-02 13:56 | disposition home or self-care (01) | DRG 581 ==
LOC: MEDS 07:11 → NM 08:00 → PRE IP 08:00 → EDSTATUS 08:00 → SURS 14:09
PROVIDERS: ADMIT Surgery
PROC: 0HTV0ZZ Resection of Bilateral Breast, Open Approach (ICD-10-PCS; 2024-04-01)
PROC: 07B60ZX Excision of Left Axillary Lymphatic, Open Approach, Diagnostic (ICD-10-PCS; principal; 2024-04-01 09:00)
PROC: 07B50ZX Excision of Right Axillary Lymphatic, Open Approach, Diagnostic (ICD-10-PCS; 2024-04-01 09:00)
DX: C50.011 Malignant neoplasm of nipple and areola, right female breast (principal); C50.812 Malignant neoplasm of overlapping sites of left female breast; Z17.0 Estrogen receptor positive status [ER+]; M19.90 Unspecified osteoarthritis, unspecified site; E78.5 Hyperlipidemia, unspecified; E11.22 Type 2 diabetes mellitus with diabetic chronic kidney disease; I12.9 Hypertensive chronic kidney disease with stage 1 through stage 4 chronic kidney disease, or unspecified chronic kidney disease; N18.9 Chronic kidney disease, unspecified; E03.9 Hypothyroidism, unspecified; G47.33 Obstructive sleep apnea (adult) (pediatric); E11.42 Type 2 diabetes mellitus with diabetic polyneuropathy; Z79.4 Long term (current) use of insulin; Z79.890 Hormone replacement therapy; Z79.899 Other long term (current) drug therapy
CPT/HCPCS: 38792; 82947; A9270; A9520; J0330; J0690; J1100; J1815; J2250; J2371; J2405; J2704; J3010; J7120; Q9968

== ENCOUNTER → 2024-10-20 | Outpatient (CLI) | payer OTHER ==
[~2024-10-20] MED LIST changes: +NOVOLIN N100 UNIT/2 SC; +OZEMPIC0.25 MG/02 SC
[2024-10-20 15:00] LABS: BASOPHILS ABSOLUTE AUTO 0.03 K/mm3 (0.00-0.23); BASOPHILS PERCENT AUTO 1 % (0-2); EOSINOPHILS ABSOLUTE AUTO 0.14 K/mm3 (0.00-0.68); EOSINOPHILS PERCENT AUTO 3 % (0-6); Hematocrit 36.9 % (33.0-51.0); Hemoglobin 12.6 g/dL (11.5-16.0); IMMATURE GRAN ABSOLUTE AUTO 0.16 K/mm3 (0.00-0.10); IMMATURE GRAN PERCENT AUTO 3 % (0-1); LYMPHOCYTES PERCENT AUTO 12 % (21-46); MONOCYTES PERCENT AUTO 8 % (4-13); Mean Corpuscular HGB 27.3 pg (26.0-34.0); Mean Corpuscular HGB Conc 34.1 g/dL (31.5-36.5); Mean Corpuscular Volume 80 fL (80-100); Mean Platelet Volume 9.2 fL (9.1-12.4); NEUTROPHILS ABSOLUTE AUTO 3.77 K/mm3 (1.96-9.15); NEUTROPHILS PERCENT AUTO 74 % (41-73); NRBC ABSOLUTE 0.03 K/mm3 (0.00-0.02); NRBC Auto 0.6 /100 WBC (0.0-0.2); Platelet Count 173 K/mm3 (150-400); RDW Coefficient Variation 15.4 % (11.7-14.2); RDW Standard Deviation 43.5 fL (35.1-46.3); Red Blood Cell Count 4.61 M/mm3 (3.80-5.20)
[2024-10-20 15:29] LABS: Albumin, Blood 3.4 g/dL (3.4-5.0); Albumin/Globulin Ratio 0.9 (0.8-1.8); Bilirubin, Total 0.5 mg/dL (0.1-1.0); Bun/Creatinine Ratio 12.1 (12.0-20.0); Calcium, Blood 9.3 mg/dL (8.5-10.1); Creatinine, Blood 1.49 mg/dL (0.40-1.00); Globulin, Blood 3.8 g/dL (2.2-4.0); Potassium, Blood 3.8 mmol/L (3.5-5.5); Total Protein, Blood 7.2 g/dL (6.4-8.2)
== END | disposition home or self-care (01) ==
LOC: LAB 14:52 → LAB SHORT 14:52
PROVIDERS: Internal Medicine Hematology & Oncology
DX: C50.912 Malignant neoplasm of unspecified site of left female breast (principal)
CPT/HCPCS: 80053; 85025

== ENCOUNTER → 2024-11-10 | Outpatient (CLI) | payer OTHER ==
[2024-11-10 15:38] LABS: BASOPHILS ABSOLUTE AUTO 0.02 K/mm3 (0.00-0.23); BASOPHILS PERCENT AUTO 1 % (0-2); EOSINOPHILS ABSOLUTE AUTO 0.04 K/mm3 (0.00-0.68); EOSINOPHILS PERCENT AUTO 3 % (0-6); Hematocrit 33.1 % (33.0-51.0); Mean Corpuscular HGB 27.6 pg (26.0-34.0); Mean Corpuscular HGB Conc 33.2 g/dL (31.5-36.5); Mean Corpuscular Volume 83 fL (80-100); Mean Platelet Volume 9.1 fL (9.1-12.4); Platelet Count 111 K/mm3 (150-400); RDW Coefficient Variation 17.3 % (11.7-14.2); RDW Standard Deviation 50.1 fL (35.1-46.3); Red Blood Cell Count 3.98 M/mm3 (3.80-5.20); White Blood Cell Count 1.55 K/mm3 (4.00-11.30)
[2024-11-10 15:40] LABS: IMMATURE GRAN ABSOLUTE AUTO 0.01 K/mm3 (0.00-0.10); IMMATURE GRAN PERCENT AUTO 1 % (0-1); LYMPHOCYTES ABSOLUTE AUTO 0.65 K/mm3 (0.84-5.20); LYMPHOCYTES PERCENT AUTO 42 % (21-46); MONOCYTES ABSOLUTE AUTO 0.12 K/mm3 (0.16-1.47); MONOCYTES PERCENT AUTO 8 % (4-13); NEUTROPHILS ABSOLUTE AUTO 0.71 K/mm3 (1.96-9.15); NEUTROPHILS PERCENT AUTO 46 % (41-73)
[2024-11-10 15:45] LABS: Albumin, Blood 3.3 g/dL (3.4-5.0); Bilirubin, Total 0.7 mg/dL (0.1-1.0); Bun/Creatinine Ratio 10.1 (12.0-20.0); Calcium, Blood 9.4 mg/dL (8.5-10.1); Creatinine, Blood 1.29 mg/dL (0.40-1.00); Globulin, Blood 3.4 g/dL (2.2-4.0); Potassium, Blood 3.3 mmol/L (3.5-5.5); Total Protein, Blood 6.7 g/dL (6.4-8.2)
== END ==
LOC: LAB SHORT 14:19 → LAB 14:19
PROVIDERS: Nurse Practitioner
DX: C50.911 Malignant neoplasm of unspecified site of right female breast (principal); C50.912 Malignant neoplasm of unspecified site of left female breast
CPT/HCPCS: 80053; 85025